=== PATIENT | female | born 1995 ===

== ENCOUNTER 2018-04-14 04:14 | Emergency (ER) | payer OTHER ==
[~2018-04-14] VITALS: Ht 165.1 cm; Wt 56.7 kg
[2018-04-14] MEDS ORDERED: KETO10TA2 PO (10:53)
== END 2018-04-14 11:14 | disposition home or self-care (01) ==
LOC: ER 04:14
DX: N83.291 Other ovarian cyst, right side (principal); R10.2 Pelvic and perineal pain